=== PATIENT | female | born 1990 | race Caucasian/White ===

== ENCOUNTER 2017-12-19 19:18 | Emergency (ER) | payer SELFPAY ==
[2017-12-19 19:47] VITALS: BP 120/69; PULSE 76; TEMP 98.2; BMI 33.1
--- NOTE | 2017-12-19 20:23 | PDOC ---
Attending Attestation - Resident Resident Name: Rylan Jeong - ED Attending Attestation I have performed the following: I have examined & evaluated the patient, The case was reviewed & discussed with the resident, I agree w/resident's findings & plan, Exceptions are as noted - HPI HPI: 12/19/17 20:44 MS Gavin is a 27 yo F who presents to the ER with a complaint of chest pain which began last night Associated with shortness of breath No cough No fevers or chills Pt denies exertional dyspnea Pt has had 1 year of lower extremity edema which is intermittent Pt states when it happens, she is largely unable to ambulate or get out of bed She can not tell me what causes this or is associated with her leg swelling (? menses) Pt has been seen by PMD and Neuro, no reason for this swelling has been found - Physicial Exam PE: 12/19/17 20:22 GENERAL: The patient is in no acute distress. HEAD: Normal EYES: PERRLA, EOMI, sclera anicteric, conjunctiva clear. ENT: Ears normal, nares patent, oropharynx clear without exudates. Moist mucous membranes. NECK: Normal range of motion, supple LUNGS: Breath sounds equal, clear to auscultation bilaterally. No wheezes, and no crackles. HEART:Regular rate and rhythm, normal S1 and S2 without murmur, rub or gallop. ABDOMEN: Soft, nontender, normoactive bowel sounds. No guarding, no rebound. EXTREMITIES: Normal range of motion, no edema. No discoloration NEUROLOGICAL: Cranial nerves II through XII grossly intact. Normal speech. No focal neurological deficits. MUSCULOSKELETAL: Chest wall non-tender to palpation SKIN: Warm, Dry, normal turgor, no rashes or lesions noted. 12/19/17 20:52 - Medical Decision Making 12/19/17 20:52 Differential includes cardiac ischemia unlikely given pt age and risk factors, PE is possible, will send D dimer, pneumonia, pneumothorax, pleural effusion, costochondritis, pericarditis, GERD. Will do: Labs CXR EKG Re Assess 12/20/17 00:24 Laboratory Tests 12/19/17 12/19/17 12/19/17 21:32 21:32 21:32 WBC 9.1 Hgb 11.4 Hct 34.7 Plt Count 350 D D-Dimer 235 BUN Creatinine Creatine Kinase Troponin I Serum , Qual Negative 12/19/17 21:32 WBC Hgb Hct Plt Count D-Dimer BUN 12 Creatinine 0.8 Creatine Kinase 103 Troponin I < 0.02 Serum , Qual Duplex negative for DVT Will re assess Pt improved Will discharge to home Follow up with PMD Return to the ER for any other concerns or complaints
--- NOTE | 2017-12-19 20:53 | PDOC ---
History of Present Illness - General Chief Complaint: Chest Pain Stated Complaint: CHEST PAIN Time Seen by Provider: 12/19/17 20:10 History Source: Patient Exam Limitations: No Limitations - History of Present Illness Initial Comments: 12/19/17 20:48 Patient is a 27F with history of migraines here today complaining of chest pain and leg pain/swelling. Patient reports that the chest pain started last night after several days of pain and swelling to her legs. She states that she has had leg pain for a year with multiple workups from her PCP, artificial fly tier, and neurologist that were normal. She is coming in today because the chest pain is new. The chest pain is worse with inspiration and palpation. Denies fevers, chills, cough. Endorses associated shortness of breath. Denies recent travel, history of blood clots, family history of blood clots, estrogen use. Past History - Past Medical History Allergies/Adverse Reactions: Allergies Allergy/AdvReac Type Severity Reaction Status Date / Time No Known Allergies Allergy Verified 12/19/17 19:47 Home Medications: Ambulatory Orders No Home Medications 12/23/14 COPD: No Other medical history: migrains - Suicide/Smoking/Psychosocial Hx Smoking History: Never smoked Have you smoked in the past 12 months: No Information on smoking cessation initiated: No Hx Alcohol Use: Yes (social) Drug/Substance Use Hx: No Substance Use Type: None Review of Systems - Review of Systems Comments:: 12/19/17 20:51 GENERAL/CONSTITUTIONAL: No fever or chills. No weakness. HEAD, EYES, EARS, NOSE AND THROAT: No change in vision. No sore throat. CARDIOVASCULAR: +chest pain +shortness of breath RESPIRATORY: No cough, wheezing, or hemoptysis. GASTROINTESTINAL: No nausea, vomiting, diarrhea or constipation. GENITOURINARY: No dysuria, frequency, or change in urination. MUSCULOSKELETAL: +b/l leg pain and swelling. No neck or back pain. SKIN: No rash NEUROLOGIC: No headache, vertigo, loss of consciousness, or change in strength/ sensation. ENDOCRINE: No increased thirst. No abnormal weight change HEMATOLOGIC/LYMPHATIC: No anemia, easy bleeding, or history of blood clots. ALLERGIC/IMMUNOLOGIC: No hives or skin allergy. *Physical Exam - Vital Signs Last Vital Signs Temp Pulse Resp BP Pulse Ox 98.2 F 76 16 120/69 99 12/19/17 19:43 12/19/17 19:43 12/19/17 19:43 12/19/17 19:43 12/19/17 19:43 - Physical Exam Comments: 12/19/17 20:52 GENERAL: Awake, alert, and fully oriented, in no acute distress HEAD: No signs of trauma, normocephalic, atraumatic EYES: PERRLA, EOMI, sclera anicteric, conjunctiva clear ENT: Auricles normal inspection, hearing grossly normal, nares patent, oropharynx clear without exudates. Moist mucosa NECK: Normal ROM, supple, no lymphadenopathy, JVD, or masses LUNGS: No distress, speaks full sentences, clear to auscultation bilaterally HEART: Regular rate and rhythm, normal S1 and S2, no murmurs, rubs or gallops, peripheral pulses normal and equal bilaterally. ABDOMEN: Soft, nontender, normoactive bowel sounds. No guarding, no rebound. No masses EXTREMITIES: Normal inspection, Normal range of motion, no edema. No clubbing or cyanosis. NEUROLOGICAL: Cranial nerves II through XII grossly intact. Normal speech, normal gait, no focal sensorimotor deficits SKIN: Warm, Dry, normal turgor, no rashes or lesions noted. ED Treatment Course - LABORATORY CBC & Chemistry Diagram: 12/19/17 21:32 12/19/17 21:32 - RADIOLOGY Radiology Studies Ordered: Category Date Time Status CHEST PA & LAT [RAD] Stat Radiology 12/19/17 20:21 Ordered DUPLEX VASCUL US-2LEGS [US] Stat Ultrasound 12/19/17 20:24 Ordered Medical Decision Making - Medical Decision Making 12/19/17 20:52 Patient is 27F here today with chest pain. Leg pain and swelling reported, but nothing appreciated on exam. Vital signs normal and stable. DDx is weighted towards msk pain, but patient's history is mildly concerning for PE, Well's score of 0. Will workup with cardiac labs, d-dimer, dvt us. EKG shows normal sinus rhythm with rate of 77. No st elevations/depressions. Normal axis. Normal t wave morphology. Normal intervals. 12/20/17 00:20 CBC normal. Preg neg. CMP reassuring. D-dimer negative. DVT US negative. Will discharge home with return precautions. Patient will follow up with her PCP and artificial fly tier for chest pain and lower extremity swelling. *DC/Admit/Observation/Transfer Diagnosis at time of Disposition: Atypical chest pain - Discharge Dispostion Disposition: HOME Condition at time of disposition: Good Decision to Admit order: No - Referrals Referrals: Deb Velasco MD [Primary Care Provider] - - Patient Instructions Printed Discharge Instructions: DI for Atypical Chest Pain Additional Instructions: Please return if you have any new, worsening or concerning symptoms. Please follow up with your primary care doctor and artificial fly tier. - Post Discharge Activity Forms/Work/School Notes: Back to Work
[2017-12-19] MEDS ORDERED: ACETAMINOPHEN 500 MG TABLET (FP) PO ONE (21:31)
[2017-12-19] MEDS ORDERED: ACETAMINOPHEN 325 MG TABLET (FP) ONE (21:36)
[2017-12-19 21:40] LABS: EOS % 3.5 % (0-4.5); HEMATOCRIT 34.7 % (32.4-45.2); HEMOGLOBIN 11.4 GM/dL (10.7-15.3); LYMPH % 28.7 % (8-40); MCH 23.5 pg (25.7-33.7); MCHC 32.7 g/dl (32.0-36.0); MEAN CELL VOLUME 71.7 fl (80-96); MEAN PLT VOLUME 8.1 fl (7.5-11.1); MONO % 6.5 % (3.8-10.2); NEUT % 60.3 % (42.8-82.8); PLATELET COUNT 350 K/MM3 (134-434); RBC 4.84 M/mm3 (3.60-5.2); RDW 17.4 % (11.6-15.6); WHITE BLOOD COUNT 9.1 K/mm3 (4.0-10.0)
[2017-12-19 21:53] LABS: INR 1.12 (0.83-1.09); PROTHROMBIN TIME (PATIENT) 12.7 SEC (9.7-13.0)
[2017-12-19 22:03] LABS: ANION GAP 7 MMOL/L (8-16); BILIRUBIN,TOTAL 0.2 mg/dL (0.2-1.0); BLOOD UREA NITROGEN 12 mg/dL (7-18); CALCIUM 9.1 mg/dL (8.5-10.1); CHLORIDE 108 mmol/L (98-107); CO2 26 mmol/L (21-32); CREATININE 0.8 mg/dL (0.55-1.02); GLUCOSE,RANDOM 82 mg/dL (74-106); MAGNESIUM 2.2 mg/dL (1.8-2.4); POTASSIUM 3.9 mmol/L (3.5-5.1); SGOT/AST 14 U/L (15-37); SGPT/ALT 19 U/L (12-78); SODIUM 141 mmol/L (136-145); TOT PROT 8.1 g/dl (6.4-8.2)
[2017-12-19 22:06] LABS: ALK PHOS 69 U/L (45-117)
--- NOTE | 2017-12-20 17:16 | EKG ---
Test Reason : Blood Pressure : / mmHG Vent. Rate : 077 BPM Atrial Rate : 077 BPM P-R Int : 152 ms QRS Dur : 084 ms QT Int : 378 ms P-R-T Axes : 026 065 036 degrees QTc Int : 427 ms NORMAL SINUS RHYTHM NORMAL ECG Confirmed by MD MILTON, LYUBOV ([id number]) on 12/20/2017 5:15:50 PM Referred By: Confirmed By:LYUBOV ROSE MD
== END 2017-12-20 00:35 | disposition home or self-care (01) ==
LOC: JER 19:18
DX: R07.89 Other chest pain (principal)
CPT/HCPCS: 36415; 71046-TC-FY; 80053; 82550; 83735; 84484; 84703; 85025; 85379; 85610; 93005; 93010; 93970-TC; 99283-25

== ENCOUNTER 2018-07-27 05:38 | Emergency (ER) | payer BC ==
--- NOTE | 2018-07-27 05:43 | PDOC ---
History of Present Illness - General Stated Complaint: PAIN Time Seen by Provider: 07/27/18 05:43 History Source: Patient Exam Limitations: No Limitations - History of Present Illness Initial Comments: 07/27/18 05:53 28 year old female with no PMH presented to ED for abdominal pain/chest pain/ back pain since this morning associated with two episodes of bilious vomiting. She stated the pain starts in her back and radiates around her sides to her epigastrium and chest. She then stated the pain starts in her epigastrium and radiates around her sides to her back and up into her chest. She described the pain as sharp and burning. She stated she drank 1 green tea yesterday and ate a chicken salad for dinner. She denied diarrhea, dysuria. Allergies: NKDA Past History - Past Medical History Allergies/Adverse Reactions: Allergies Allergy/AdvReac Type Severity Reaction Status Date / Time No Known Allergies Allergy Verified 12/19/17 19:47 Home Medications: Ambulatory Orders No Home Medications 12/23/14 Famotidine 20 mg PO BID #20 tablet 07/27/18 Famotidine [Pepcid -] 20 mg PO BID #14 tablet 07/27/18 Pantoprazole Sodium [Protonix] 40 mg PO DAILY #30 tablet. 07/27/18 COPD: No - Suicide/Smoking/Psychosocial Hx Smoking History: Never smoked Have you smoked in the past 12 months: No Hx Alcohol Use: Yes (social) Drug/Substance Use Hx: No Substance Use Type: None Review of Systems - Review of Systems Able to Perform ROS?: Yes Comments:: 07/27/18 05:57 General: denied fever, chills, generalized weakness. HEENT: denied sore throat, rhinorrhea, ear pain. Heart: admitted to chest pain. denied palpitations, syncope, diaphoresis. Respiratory: admitted to shortness of breath. denied cough, sputum production, hemoptysis. Abdomen: admitted to abdominal pain, nausea, vomiting. denied diarrhea, constipation, blood in stool. : denied dysuria, increased urinary frequency, hematuria, urinary incontinence , flank pain. Back: admitted to back pain. Musculoskeletal: denied joint pain, muscle pain, joint swelling. Neurological: denied headache, dizziness, numbness, tingling, weakness. Skin: denied rash, laceration, abrasion. *Physical Exam - Physical Exam Comments: 07/27/18 05:59 Constitutional: Well-nourished, Well-developed, appearing stated age. anxious. HEENT: head is normocephalic, atraumatic. EOMI. PERRLA. Neck: supple. Full ROM. Heart: regular rhythm. no murmurs, rubs or gallops. Lungs: clear to auscultation bilaterally. no crackles, rhonchi or wheezing. no stridor. Abdomen: soft, nontender. normal bowel sounds. no rebound, guarding, masses. Extremities: peripheral pulses intact. no lower extremity edema. Neurological: CN 2-12 grossly intact. moves all four extremities. Psych: awake, alert, oriented x3. follows commands. answers questions appropriately. ED Treatment Course - LABORATORY CBC & Chemistry Diagram: 07/27/18 08:20 07/27/18 06:16 Medical Decision Making - Medical Decision Making 07/27/18 05:59 28 year old female with no PMH presented to ED for chest/back/epigastric pain. Labs ordered: CBC, CMP, lipase, d-dimer, UA/UC, testing Imaging ordered: CXR Medications ordered: Tylenol IV, pepcid, reglan EKG performed at 0618: rate 63, regular rhythm, normal axis, normal intervals, no acute ST changes, no right heart strain. 07/27/18 07:17 CMP Sodium 138 mmol/L (136-145) 07/27/18 06:16 Potassium 3.8 mmol/L (3.5-5.1) 07/27/18 06:16 Chloride 109 mmol/L (98-107) H 07/27/18 06:16 Carbon Dioxide 22 mmol/L (21-32) 07/27/18 06:16 Anion Gap 7 MMOL/L (8-16) L 07/27/18 06:16 BUN 11 mg/dL (7-18) 07/27/18 06:16 Creatinine 0.6 mg/dL (0.55-1.3) 07/27/18 06:16 Creat Clearance w eGFR 120.84 (>60) 07/27/18 06:16 Random Glucose 113 mg/dL (74-106) H 07/27/18 06:16 Calcium 8.9 mg/dL (8.5-10.1) 07/27/18 06:16 Magnesium 1.9 mg/dL (1.8-2.4) 07/27/18 06:16 Total Bilirubin 0.2 mg/dL (0.2-1) 07/27/18 06:16 AST 22 U/L (15-37) 07/27/18 06:16 ALT 17 U/L (13-61) 07/27/18 06:16 Alkaline Phosphatase 56 U/L (45-117) 07/27/18 06:16 Total Protein 7.5 g/dl (6.4-8.2) 07/27/18 06:16 Albumin 3.5 g/dl (3.4-5.0) 07/27/18 06:16 Lipase 194 U/L (73-393) 07/27/18 06:16 No electrolyte abnormalities. No ALYSSA. No transaminitis. No lipase elevation. D-Dimer 503. -Mild elevation -Will discuss with patient 07/27/18 07:20 Pt reported pain is improving. I spoke with the patient about the results and the small chance of aortic dissection. I discussed with her the risk of radiation and cancer. She stated that she would like to have the imaging performed. CTA chest and CTA abdomen ordered. Medications ordered: normal saline 1000 cc bolus Pending above. Pt signed out to Dr. Tripathi. 07/27/18 19:59 Follow up: no evidence of thoracic or abdominal aortic aneurysm or dissection. no acute pathology within the chest or abdomen. Pt was discharged with instruction for PCP and GI follow up. Discharge prescriptions: Pepcid. *DC/Admit/Observation/Transfer Diagnosis at time of Disposition: Epigastric pain, Chest pain, Back pain - Discharge Dispostion Disposition: HOME Condition at time of disposition: Improved - Prescriptions Prescriptions: Famotidine [Pepcid -] 20 mg PO BID #14 tablet Famotidine 20 mg PO BID #20 tablet Pantoprazole Sodium [Protonix] 40 mg PO DAILY #30 tablet. - Referrals Referrals: Clifton Witt DO [Staff Physician] - - Patient Instructions Printed Discharge Instructions: DI for Epigastric Pain Additional Instructions: You were seen today for chest/abdominal/back pain. Your lab work was normal. Your urine analysis was normal. Your Cat Scan was normal. Foods to avoid that will irritate your stomach: spicy, fried, chocolate, tomato , greasy, caffeine, tea, coffee Foods to eat in the next 24-48 hours while your stomach is irritated: bread, rice, toast, soup, applesauce, plain chicken I have sent a prescription for pepcid and protonix to your pharmacy to treat stomach acid. Pick it up today and take as advised on label. Take tylenol over the counter for your pain. Take as advised on label. Follow up with your primary care doctor in 1-2 days. Bring all paperwork given to you today to your appointment. We have referred you to a GI specialist. Call and make an appointment at the number provided. Return to the Emergency Department for increasing pain despite tylenol and pepcid use, vomiting, vomiting blood, fever, lightheadedness like you may pass out, chest pain or any other new, worsening or concerning symptoms. - Post Discharge Activity Forms/Work/School Notes: Back to Work
[2018-07-27] MEDS ORDERED: METOCLOPRAMIDE HCL INJECTION 10 MG/2 ML VIAL IVPUSH ONE (05:52)
[2018-07-27] MEDS ORDERED: FAMOTIDINE 20 MG/50 ML IVPB 20 MG/50 ML MG IVPB ONE ×2 (05:52→06:24)
[2018-07-27] MEDS ORDERED: ACETAMINOPHEN 1000 MG/100 ML VIAL (NON FORMULARY) IVPB ONE (05:52)
[2018-07-27] MEDS ORDERED: ACETAMINOPHEN INJECTION 100 ML IVPB ONE (06:24)
[2018-07-27] MEDS ORDERED: METOCLOPRAMIDE HCL INJECTION 10 MG/2 ML VIAL ONE (06:24)
[2018-07-27 06:35] VITALS: BMI 34.0
--- NOTE | 2018-07-27 06:51 | PDOC ---
Attending Attestation - Resident Resident Name: Pema Arthur - ED Attending Attestation I have performed the following: I have examined & evaluated the patient, The case was reviewed & discussed with the resident, I agree w/resident's findings & plan - HPI HPI: 07/27/18 06:46 28-year-old female with no medical history presenting with acute onset of back and abdominal pain since this morning when she woke up at 4:30 AM. She noted initial mid back pain and subsequently developed into diffuse/more epigastric abdominal pain radiating upwards to her chest associated with shortness of breath and burning sensation. Several episodes of nausea and vomiting. No diarrhea, fevers or chills. Last night she had salad and chicken. Of note 1 month ago she did travel to [facility] and had an Escherichia coli/ traveler's diarrhea that was uncomplicated. No prior episodes of similar symptoms, no history of GI eval. No meds taken prior to presentation. She is currently taking vitamins and control. No significant family history of cardiac disease, PE or DVT. no tobacco or ETOH use. - Physicial Exam PE: 07/27/18 06:48 Agree with the resident's HPI and PE as documented in the electronic medical record. NAD, PERRL, EOMI, MMM, nl conjunctiva, anicteric; neck supple. lungs clear, RRR , abdomen soft nontender. LY x4, no focal neuro deficits. No peripheral edema. normal color for ethnicity, WWP. no rash. no leg tenderness or edema. - Medical Decision Making 07/27/18 06:49 See HPI for details Vital signs reviewed, wnl. DDx abdominal pain: Renal colic, biliary colic, metabolic/electrolyte derangements. GERD, gastritis, PUD, esophageal spasm, pancreatitis, hepatitis, constipation, colitis, gastroenteritis, cholecystitis, UTI, pyelonephritis, medication side effect, hernia, PE, ao dissection, msk strain. perf viscus. no diarrhea sx to suggest C diff colitis. Prior notes reviewed, including admissions, discharges and consultations. laboratory results and imaging reviewed, basic labs and lytes wnl, coags LFTs and lipase normal UA_pending CXR_ dimer mildly positive at 503, will need CTA chest and abdomen to primarily eval for ao dissection given initial presentation EKG normal sinus rhythm at 63 bpm, no interval abnormalities, narrow QRS, ST and T wave segments and morphology normal. ED course - given GI cocktail, antiemetics, tylenol and IVF, reassess CTA chest and abdomen pending to eval for dissection s/o Dr Jain and day team pending labs and workup, ultimate dispo. 07/27/18 06:51 07/27/18 07:28 07/27/18 07:28 Heart Score/ECG Review #1 ECG reviewed & interpreted by me at: 06:20 General ECG Interpretation: Sinus Rhythm, Normal Rate, Normal Intervals, No acute ischemic changes 07/27/18 06:51 EKG normal sinus rhythm at 63 bpm, no interval abnormalities, narrow QRS, ST and T wave segments and morphology normal.
[2018-07-27 07:05] LABS: INR 0.97 (0.83-1.09); PROTHROMBIN TIME (PATIENT) 11.5 SEC (9.7-13.0)
[2018-07-27 07:11] LABS: ALBUMIN 3.5 g/dl (3.4-5.0); ALK PHOS 56 U/L (45-117); ANION GAP 7 MMOL/L (8-16); BILIRUBIN,TOTAL 0.2 mg/dL (0.2-1); BLOOD UREA NITROGEN 11 mg/dL (7-18); CALCIUM 8.9 mg/dL (8.5-10.1); CHLORIDE 109 mmol/L (98-107); CO2 22 mmol/L (21-32); CREATININE 0.6 mg/dL (0.55-1.3); GLUCOSE,RANDOM 113 mg/dL (74-106); MAGNESIUM 1.9 mg/dL (1.8-2.4); POTASSIUM 3.8 mmol/L (3.5-5.1); SGOT/AST 22 U/L (15-37); SGPT/ALT 17 U/L (13-61); SODIUM 138 mmol/L (136-145); TOT PROT 7.5 g/dl (6.4-8.2)
[2018-07-27] MEDS ORDERED: SODIUM CHLORIDE 1,000 ML IV STA (07:23)
--- NOTE | 2018-07-27 08:01 | PDOC ---
*Physical Exam - Vital Signs Last Vital Signs Temp Pulse Resp BP Pulse Ox 97.6 F 71 20 151/92 100 07/27/18 06:07 07/27/18 06:07 07/27/18 06:07 07/27/18 06:07 07/27/18 06:07 ED Treatment Course - LABORATORY CBC & Chemistry Diagram: 07/27/18 08:20 07/27/18 06:16 - ADDITIONAL ORDERS Additional order review: Laboratory Results 07/27/18 07/27/18 07/27/18 06:16 06:16 06:16 PT with INR 11.50 INR 0.97 D-Dimer 503 H Sodium Potassium Chloride Carbon Dioxide Anion Gap BUN Creatinine Creat Clearance w eGFR Random Glucose Calcium Magnesium Total Bilirubin AST ALT Alkaline Phosphatase Total Protein Albumin Lipase 194 07/27/18 06:16 PT with INR INR D-Dimer Sodium 138 Potassium 3.8 Chloride 109 H Carbon Dioxide 22 Anion Gap 7 L BUN 11 Creatinine 0.6 Creat Clearance w eGFR 120.84 Random Glucose 113 H Calcium 8.9 Magnesium 1.9 Total Bilirubin 0.2 AST 22 ALT 17 Alkaline Phosphatase 56 Total Protein 7.5 Albumin 3.5 Lipase 07/27/18 06:16 RBC Cancelled MCV Cancelled MCHC Cancelled RDW Cancelled MPV Cancelled Neutrophils % Cancelled Lymphocytes % Cancelled Monocytes % Cancelled Eosinophils % Cancelled Basophils % Cancelled - Medications Given in the ED: ED Medications Discontinued Medications Generic Name Dose Route Start Last Admin Trade Name Jose Armandoq PRN Reason Stop Dose Admin Acetaminophen 1,000 mg 07/27/18 05:52 07/27/18 06:31 Ofirmev Injection - IVPB 07/27/18 05:53 1,000 mg ONCE ONE Administration Famotidine/Sodium Chloride 20 mg in 50 mls @ 100 mls/hr 07/27/18 05:52 06:30 Pepcid 20 Mg Premixed Ivpb - IVPB 07/27/18 06:21 100 mls/hr ONCE ONE Administration Metoclopramide HCl 10 mg 07/27/18 05:52 07/27/18 06:30 Reglan Injection - IVPUSH 07/27/18 05:53 10 mg ONCE ONE Administration Medical Decision Making - Medical Decision Making Patient signed out by Dr. Arthur 28yo F with no significant PMH presneitn with epigastric pain. D-dimer 503. CTA ordered. CBC hemolyzed, re-ordered. 07/27/18 08:01 Patient reports feeling better Pending serum test and CBC Will send to CTA when test is back 07/27/18 08:22 CBC without anemia or leukocytosis 20 gauge IV placed in the right AC in preparation for IV contrast 07/27/18 08:54 Patient negative. Brought to CT 07/27/18 09:14 CT called saying patient is in such pain that she cannot lay for the exam 4mg morphine ordered 07/27/18 09:48 Patient reports improved pain, now 5/10 CTA: "The thoracic aorta is normal in position and caliber with no evidence of aneurysmal dilatation or dissection. The lung santoro are free of pulmonary masses, areas of acute consolidation or pleural effusions. No mediastinal masses , fluid collections or lymphadenopathy are identified. The heart is not enlarged. The abdominal aorta is normal in caliber with no evidence of aneurysmal dilatation or dissection. The branches of the abdominal aorta, including the celiac axis, SMA, bilateral renal arteries and ALEXANDRA, are widely patent and disease free. The liver, spleen, pancreas, adrenal glands and kidneys demonstrate no significant abnormalities. There is no evidence of intra- abdominal or retroperitoneal lymphadenopathy or fluid collections. There is no evidence of acute bony abnormalities. IMPRESSION: 1. No evidence of thoracic or abdominal aortic aneurysm or dissection. 2. No acute pathology within the chest or abdomen. Please see above discussion. " CTA negative. Patient given GI follow-up, pepcid and protonix prescriptions, and is amenable to discharge home. Patient discharged *DC/Admit/Observation/Transfer Diagnosis at time of Disposition: Epigastric pain, Chest pain, Back pain - Discharge Dispostion Disposition: HOME Condition at time of disposition: Improved - Prescriptions Prescriptions: Famotidine [Pepcid -] 20 mg PO BID #14 tablet Famotidine 20 mg PO BID #20 tablet Pantoprazole Sodium [Protonix] 40 mg PO DAILY #30 tablet.dr - Referrals Referrals: Clifton Witt DO [Staff Physician] - - Patient Instructions Printed Discharge Instructions: DI for Epigastric Pain Additional Instructions: You were seen today for chest/abdominal/back pain. Your lab work was normal. Your urine analysis was normal. Your Cat Scan was normal. Foods to avoid that will irritate your stomach: spicy, fried, chocolate, tomato , greasy, caffeine, tea, coffee Foods to eat in the next 24-48 hours while your stomach is irritated: bread, rice, toast, soup, applesauce, plain chicken I have sent a prescription for pepcid and protonix to your pharmacy to treat stomach acid. Pick it up today and take as advised on label. Take tylenol over the counter for your pain. Take as advised on label. Follow up with your primary care doctor in 1-2 days. Bring all paperwork given to you today to your appointment. We have referred you to a GI specialist. Call and make an appointment at the number provided. Return to the Emergency Department for increasing pain despite tylenol and pepcid use, vomiting, vomiting blood, fever, lightheadedness like you may pass out, chest pain or any other new, worsening or concerning symptoms. - Post Discharge Activity Forms/Work/School Notes: Back to Work
[2018-07-27 08:38] LABS: BASO % 0.4 % (0-2.0); EOS % 1.2 % (0-4.5); HEMATOCRIT 37.2 % (32.4-45.2); HEMOGLOBIN 12.5 GM/dL (10.7-15.3); LYMPH % 15.6 % (8-40); MCH 26.7 pg (25.7-33.7); MCHC 33.7 g/dl (32.0-36.0); MEAN CELL VOLUME 79.2 fl (80-96); MEAN PLT VOLUME 8.1 fl (7.5-11.1); MONO % 5.3 % (3.8-10.2); NEUT % 77.5 % (42.8-82.8); PLATELET COUNT 324 K/MM3 (134-434); RDW 15.8 % (11.6-15.6); WHITE BLOOD COUNT 9.3 K/mm3 (4.0-10.0)
[2018-07-27] MEDS ORDERED: morphine CARPU-JECT 4 MG/1 ML DISP.SYRIN IVPUSH ONE (09:40)
[2018-07-27] MEDS ORDERED: morphine SULFATE 4 MG/ML VIAL ONE (09:44)
[2018-07-27] MEDS ORDERED: PANTOPRAZOLE SODIUM 40 MG VIAL IVPUSH ONE (10:06)
[2018-07-27] MEDS ORDERED: SUCRALFATE 1 GM TABLET (FP) PO ONE (10:06)
[2018-07-27] MEDS ORDERED: SUCRALFATE 1 GM TABLET (FP) ONE (11:18)
[2018-07-27] MEDS ORDERED: PANTOPRAZOLE SODIUM 40 MG VIAL ONE (11:18)
[2018-07-27 12:07] VITALS: BP 116/72; PULSE 82; TEMP 98.2
--- NOTE | 2018-07-27 12:12 | EKG ---
Test Reason : Blood Pressure : / mmHG Vent. Rate : 063 BPM Atrial Rate : 063 BPM P-R Int : 162 ms QRS Dur : 090 ms QT Int : 404 ms P-R-T Axes : 045 077 043 degrees QTc Int : 413 ms NORMAL SINUS RHYTHM NORMAL ECG WHEN COMPARED WITH ECG OF 19-DEC-2017 19:43, NO SIGNIFICANT CHANGE WAS FOUND Confirmed by GEOFF ZAIDI MD ([id number]) on 07/27/2018 12:12:02 PM Referred By: Confirmed By:GEOFF ZAIDI MD
== END 2018-07-27 12:15 | disposition home or self-care (01) ==
LOC: JER 05:38
PROC: 3E0337Z Introduction of Electrolytic and Water Balance Substance into Peripheral Vein, Percutaneous Approach (ICD-10-PCS; principal; 2018-07-27)
PROC: 3E033NZ Introduction of Analgesics, Hypnotics, Sedatives into Peripheral Vein, Percutaneous Approach (ICD-10-PCS; 2018-07-27)
PROC: 3E033NZ Introduction of Analgesics, Hypnotics, Sedatives into Peripheral Vein, Percutaneous Approach (ICD-10-PCS; 2018-07-27)
PROC: 3E033GC Introduction of Other Therapeutic Substance into Peripheral Vein, Percutaneous Approach (ICD-10-PCS; 2018-07-27)
PROC: 3E033GC Introduction of Other Therapeutic Substance into Peripheral Vein, Percutaneous Approach (ICD-10-PCS; 2018-07-27)
DX: R10.13 Epigastric pain (principal); R07.9 Chest pain, unspecified; M54.9 Dorsalgia, unspecified
CPT/HCPCS: 36415; 71275-TC; 74175-TC; 80053; 83690; 83735; 84703; 85025; 85379; 85610; 85730; 93005; 93010; 99282-25; J0131; J7030

== ENCOUNTER 2019-04-23 20:28 | Emergency (ER) | payer BC, OTHER ==
[2019-04-23 20:38] VITALS: BP 140/92; PULSE 85; TEMP 98.8; BMI 34.3
--- NOTE | 2019-04-23 21:09 | PDOC ---
Rapid Medical Evaluation Chief Complaint: Sore Throat Time Seen by Provider: 04/23/19 21:08 Medical Evaluation: Allergies Allergy/AdvReac Type Severity Reaction Status Date / Time No Known Allergies Allergy Verified 04/23/19 20:35 Vital Signs Temp Pulse Resp BP Pulse Ox 98.8 F 85 140/92 100 04/23/19 20:36 04/23/19 20:36 04/23/19 20:36 04/23/19 20:36 04/23/19 21:08 I have performed a brief in-person evaluation of this patient. The patient presents with a chief complaint of: sore throat Pertinent physical exam findings:stable and in NAD, non-focal I have ordered the following: strep screening The patient will proceed to the ED for further evaluation. 04/23/19 21:14 Discharge Disposition - Referrals Referrals: Deb Velasco MD [Primary Care Provider] - - Patient Instructions - Post Discharge Activity
--- NOTE | 2019-04-23 22:38 | PDOC ---
History of Present Illness - General Chief Complaint: Sore Throat Stated Complaint: SORE THROAT/FEVER Time Seen by Provider: 04/23/19 21:08 - History of Present Illness Initial Comments: 04/23/19 22:37 29-year-old female with sore throat and ear pain x3 days no systemic symptoms Past History - Past Medical History Allergies/Adverse Reactions: Allergies Allergy/AdvReac Type Severity Reaction Status Date / Time No Known Allergies Allergy Verified 04/23/19 20:35 Home Medications: Ambulatory Orders No Home Medications 12/23/14 Famotidine 20 mg PO BID #20 tablet 07/27/18 Famotidine [Pepcid -] 20 mg PO BID #14 tablet 07/27/18 Pantoprazole Sodium [Protonix] 40 mg PO DAILY #30 tablet. 07/27/18 COPD: No - Immunization History Td Vaccination: Yes TDAP Vaccination: Yes Immunization Up to Date: Yes - Psycho Social/Smoking Cessation Hx Smoking History: Never smoked Have you smoked in the past 12 months: No Hx Alcohol Use: Yes (social) Drug/Substance Use Hx: No Substance Use Type: None Review of Systems - Review of Systems Constitutional: No: Fever HEENTM: Yes: Ear Pain, Throat Pain Respiratory: Yes: Cough *Physical Exam - Vital Signs Last Vital Signs Temp Pulse Resp BP Pulse Ox 98.8 F 85 140/92 100 04/23/19 20:36 04/23/19 20:36 04/23/19 20:36 04/23/19 20:36 - Physical Exam 04/23/19 22:38 GENERAL: The patient is awake, alert, and fully oriented, in no acute distress. HEAD: Normal with no signs of trauma. EYES: sclera anicteric, conjunctiva clear. ENT: Ears normal tympanic membranes normal oropharynx clear uvula midline NECK: Normal range of motion LUNGS: Breath sounds equal, clear to auscultation bilaterally. No wheezes, and no crackles. HEART: S1 and S2 without murmur, rub or gallop. ABDOMEN: Soft, nontender, normoactive bowel sounds. No guarding, no rebound. No masses. EXTREMITIES: Normal range of motion, no edema. No clubbing or cyanosis. No cords, erythema, or tenderness. NEUROLOGICAL: Cranial nerves II through XII grossly intact. Normal speech, normal gait. PSYCH: Normal mood, normal affect. SKIN: Warm, Dry, normal turgor, no rashes or lesions noted. Medical Decision Making - Medical Decision Making 04/23/19 22:38 Most likely a viral upper respiratory infection will sign outpatient to main emergency room at this point strep test pending exam appears benign. Discharge - Discharge Information Problems reviewed: Yes Clinical Impression/Diagnosis: Viral URI with cough - Follow up/Referral Referrals: Deb Velasco MD [Primary Care Provider] - - Patient Discharge Instructions - Post Discharge Activity
--- NOTE | 2019-04-23 23:05 | PDOC ---
*Physical Exam - Vital Signs Last Vital Signs Temp Pulse Resp BP Pulse Ox 98.8 F 85 140/92 100 04/23/19 20:36 04/23/19 20:36 04/23/19 20:36 04/23/19 20:36 - Physical Exam General Appearance: Yes: Appropriately Dressed. No: Apparent Distress HEENT: positive: [place], Normal Voice, TMs Normal, Pharyngeal Erythema. negative : Tonsillar Exudate, Tonsillar Erythema Neck: positive: Trachea midline, Supple Respiratory/Chest: positive: Lungs Clear, Normal Breath Sounds. negative: Respiratory Distress, Accessory Muscle Use ED Progress Note - Progress Note Progress Note: 04/23/19 23:04 Received patient from [facility]. Briefly this a 29-year-old woman with sore throat for the past 3 days. Rapid strep testing is pending Dispo pending rapid strep results Medical Decision Making - Medical Decision Making 04/23/19 23:04 Rapid strep testing is negative. I will discharge the patient home to follow- up with her primary doctor for continued evaluation. I discussed the physical exam findings, ancillary test results and final diagnoses with the patient. I answered all of the patient's questions. The patient was satisfied with the care received and felt comfortable with the discharge plan and treatment plan. The patient will call their primary care physician within 24 hours to arrange follow-up and will return to the Emergency Department with any new, persistent or worsening symptoms. Discharge - Discharge Information Problems reviewed: Yes Clinical Impression/Diagnosis: Viral URI with cough Condition: Stable Disposition: HOME - Admission No - Follow up/Referral Referrals: Deb Velasco MD [Primary Care Provider] - - Patient Discharge Instructions Additional Instructions: Rest, drink lots of fluids: Teas, water, soups, Pedialyte Saltwater gargles Steamy showers/seem to face break up mucus Avoid contact with others until fevers and cough resolved Lots of handwashing and good hygiene Continue [id number] medications for symptomatic relief Tylenol or Motrin for fever and pain Followup with private physician in one to 2 days as needed Return to emergency department for worsened symptoms, fevers, dehydration - Post Discharge Activity Work/Back to School Note: Back to Work
== END 2019-04-24 00:07 | disposition home or self-care (01) ==
LOC: JERFT 20:28
DX: J06.9 Acute upper respiratory infection, unspecified (principal); B97.89 Other viral agents as the cause of diseases classified elsewhere
CPT/HCPCS: 87070; 87880; 99281-25